=== PATIENT | male | born 1990 | race Caucasian/White ===

== ENCOUNTER 2019-12-21 03:51 | Observation (INO) | payer SELFPAY ==
[~2019-12-21] VITALS: Ht 182 cm; Wt 77.5 kg
[~2019-12-21 03:51] MED LIST: AGM875T PO; ALBU5SOL10 IH; ALBU8.5H4 IH; BENZ100C8 PO; CIPR500T78 PO; CPR500T PO; DOXY100C2 PO; FAMO-119 PO; HYDR1TAB8 OP; HYDR473S16 PO; LTRS15C TOP; PRD20T PO; SULF-109 PO; SULF1TAB38 PO; [UNRECOGNIZED DRUG - OTHER]; blue goo TOP
--- NOTE | 2019-12-21 03:51 | NUR ---
Combative on arrival. PPD at bedside.
[2019-12-21] MEDS ORDERED: LACTATED RINGERS 1,000 ML IV ONE (04:05)
[2019-12-21 04:15] LABS: BASOPHILS # (AUTO) 0.1 10^3/uL (0.0-0.1); BASOPHILS % (AUTO) 1 % (0-10); EOSINOPHILS # (AUTO) 0.5 10^3/uL (0.0-0.3); EOSINOPHILS % (AUTO) 5 % (0-10); HEMATOCRIT 46 % (40-54); LYMPHOCYTES # (AUTO) 6.3 X 10^3 (1.0-4.0); LYMPHOCYTES % (AUTO) 59 % (12-44); MEAN CORPUSCULAR HEMOGLOBIN 30 PG (25-34); MEAN CORPUSCULAR HGB CONC 35 G/DL (32-36); MEAN CORPUSCULAR VOLUME 85 FL (80-99); MEAN PLATELET VOLUME 11.7 FL (7.4-10.4); MONOCYTES # (AUTO) 1.1 X 10^3 (0.0-1.0); MONOCYTES % (AUTO) 10 % (0-12); NEUTROPHILS # (AUTO) 2.8 X 10^3 (1.8-7.8); NEUTROPHILS % (AUTO) 26 % (42-75); PLATELET COUNT 259 10^3/uL (130-400); RED CELL DISTRIBUTION WIDTH 13.1 % (10.0-14.5); WHITE BLOOD COUNT 10.7 10^3/uL (4.3-11.0)
--- NOTE | 2019-12-21 04:20 | NUR ---
HS and PPD took patient to Radiology.
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
[2019-12-21 04:30] LABS: PROTHROMBIN TIME PATIENT 13.2 SEC (12.2-14.7)
[2019-12-21 04:37] LABS: ALANINE AMINOTRANSFERASE 21 U/L (0-55); ALBUMIN 4.6 GM/DL (3.2-4.5); ALKALINE PHOSPHATASE 73 U/L (40-136); AMYLASE 44 U/L (25-125); BILIRUBIN,TOTAL 0.4 MG/DL (0.1-1.0); BUN/CREATININE RATIO 9; CALCIUM 9.1 MG/DL (8.5-10.1); CARBON DIOXIDE 21 MMOL/L (21-32); CHLORIDE 109 MMOL/L (98-107); CREATINE KINASE 161 U/L (30-200); CREATININE SERUM 1.06 MG/DL (0.60-1.30); GFR ESTIMATED > 60; GLUCOSE 105 MG/DL (70-105); LIPASE 25 U/L (8-78); MAGNESIUM 2.3 MG/DL (1.6-2.4); SODIUM 143 MMOL/L (135-145); TOTAL PROTEIN 7.7 GM/DL (6.4-8.2)
[2019-12-21 04:43] LABS: CREATINE KINASE MB 2.5 NG/ML (<6.6)
[2019-12-21 04:45] LABS: ACETAMINOPHEN < 10 UG/ML (10-30)
[2019-12-21] MEDS ORDERED: LORazepam INJ 2 MG/ML (ATIVAN) VIAL IVP ONE (05:45)
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
[2019-12-21 05:56] LABS: BILIRUBIN,URINE NEGATIVE (NEGATIVE); CLARITY,URINE CLEAR; COLOR,URINE YELLOW; GLUCOSE, URINE (UA) NEGATIVE (NEGATIVE); KETONES,URINE NEGATIVE (NEGATIVE); LEUKOCYTE ESTERASE ,URINE NEGATIVE (NEGATIVE); NITRITE,URINE NEGATIVE (NEGATIVE); PH,URINE 5.5 (5-9); PROTEIN,URINE NEGATIVE (NEGATIVE)
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
--- OUTSIDE RECORDS SUMMARY | 2019-12-21 05:56 | XMS REPORT ---
Author Author Dm Jarrell Doctor Organization [facility] Address Unknown Phone Unavailable Care Team Providers Care Certified Dietary Manager Name Role Phone Migration, Doctor Unavailable Unavailable PROBLEMS Type Condition ICD9-CM Code [id number] Code Onset Dates Condition S tatus SNOMED Code Problem Allergic rhinitis J30.9 Active 61 442159 Problem Tobacco abuse counseling Z71.6 Activ e [id number] Problem Edema of left foot R60.0 Active 1 [id number] Problem Cold sore B00.1 Active 6335157 ALLERGIES Substance Reaction Event Type Date Status Keflex Unknown Drug Allergy Aug, Active ENCOUNTERS Encounter Location Date Diagnosis [facility] [id number] [place] [phone] Feb, Strep throat J02.0 and Nause a and vomiting, intractability of vomiting not specified, unspecified vomiting type R11.2 [facility] [id number] [place] [phone] May, Edema of left foot R60.0 [facility] IN [facility] [id number] [place] [phone] May, Allergic rhinitis J30.9 ; Co ld sore B00.1 ; Edema of left foot R60.0 and Tobacco abuse counseling Z71.6 [facility] [address] [place] [phone] Aug, [facility] [id number] [place] [phone] Aug, [facility] [id number] [place] [phone] Jun, [facility] [id number] [place] [phone] Jun, IMMUNIZATIONS No Known Immunizations SOCIAL HISTORY Never Assessed REASON FOR VISIT EMR-[facility] [place] PLAN OF CARE VITAL SIGNS MEDICATIONS Medication Instructions Dosage Frequency Start Date End Date Duration S tatus Flonase 50 mcg/actuation 1 sprays by Domenic al route 2 times per day in each nostril Jun, Active Clotrimazole 1 % 1 rosemary by Topical route 2 times per day Jun, Active ProAir HFA 90 mcg/actuation inhale 2 puf fs by Inhalation route every 4 hours as needed PRN shortness of breath/cough Jun, Active MethylPREDNISolone 4 mg 4 mg by Oral route 1 time per day as directed Jun, Active Triamcinolone Acetonide 0.5 % 1 Ointment by Topical route 2 times per day PRN apply thin layer to affected area BID Jun, Active RESULTS No Results PROCEDURES No Known procedures INSTRUCTIONS MEDICATIONS ADMINISTERED No Known Medications MEDICAL (GENERAL) HISTORY Type Description Date Medical History asthma Surgical History jaw wiring 2011 Hospitalization History pneumonia 2011
--- OUTSIDE RECORDS SUMMARY | 2019-12-21 05:56 | XMS REPORT ---
Author Author Dm DICKENS Organization [employer] Address Unknown Phone Unavailable Care Team Providers Care Hardwood Floor Layer Name Role Phone SAMANTHA DICKENS CP Unavailable Allergies No Known Allergies Problems Problem Type Condition Code Onset Dates Condition Statu s Problem Cold sore B00.1 Active Problem Edema of left foot R60.0 Active Problem Allergic rhinitis J30.9 Active Problem Tobacco abuse counseling Z71.6 Act roslyn Assessment Edema of left foot R60.0 Active Medications No Known Medications Procedures Procedure Coding System Code Date X-RAY EXAM OF FOOT CPT-4 41802 May 21, 2015 Results No Known Results Summary Purpose [employer] Submission
--- OUTSIDE RECORDS SUMMARY | 2019-12-21 05:56 | XMS REPORT ---
Author Author Dm Jarrell Doctor Organization [facility] Address Unknown Phone Unavailable Care Team Providers Care Tug Boat Engineer Name Role Phone Migration, Doctor Unavailable Unavailable PROBLEMS Type Condition ICD9-CM Code KLE36-UT Code Onset Dates Condition S tatus SNOMED Code Problem Allergic rhinitis J30.9 Active 61 524644 Problem Tobacco abuse counseling Z71.6 Activ e [id number] Problem Edema of left foot R60.0 Active 1 [id number] Problem Cold sore B00.1 Active 6595516 ALLERGIES No Information ENCOUNTERS Encounter Location Date Diagnosis [facility] [id number] [place] [id number] 24 Feb, 2016 Strep throat J02.0 and Nause a and vomiting, intractability of vomiting not specified, unspecified vomiting type R11.2 [facility] [id number] [place] [phone] 12 May, 2015 Edema of left foot R60.0 [facility] [id number] [place] [phone] May, Allergic rhinitis J30.9 ; Co ld sore B00.1 ; Edema of left foot R60.0 and Tobacco abuse counseling Z71.6 [facility] [id number] [place] [id number] Aug, [facility] [id number] [place] [id number] Aug, [place] [address] [phone] Jun, [place] [id number] [place] [phone] Jun, IMMUNIZATIONS No Known Immunizations SOCIAL HISTORY Never Assessed REASON [place] [place] VITAL SIGNS MEDICATIONS No Known Medications RESULTS No Results PROCEDURES No Known procedures INSTRUCTIONS MEDICATIONS ADMINISTERED No Known Medications MEDICAL (GENERAL) HISTORY Type Description Date Medical History asthma Surgical History jaw wiring 2011 Hospitalization History pneumonia 2011
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
[2019-12-21 06:04] LABS: BACTERIA,URINE NEGATIVE /HPF; SQUAMOUS EPITHELIAL CELL,UR RARE /HPF
[2019-12-21 06:12] LABS: AMPHETAMINE SCREEN, URINE NEGATIVE (NEGATIVE); BARBITURATE SCREEN URINE NEGATIVE (NEGATIVE); BENZODIAZEPINES SCREEN URINE NEGATIVE (NEGATIVE); CANNABINOID SCREEN, URINE NEGATIVE (NEGATIVE); COCAINE SCREEN URINE NEGATIVE (NEGATIVE); METHADONE STAT NEGATIVE (NEGATIVE); METHAMPHETAMINE SCREEN URINE S NEGATIVE (NEGATIVE); OPIATE SCREEN URINE NEGATIVE (NEGATIVE); OXYCODONE STAT NEGATIVE (NEGATIVE); PROPOXYPHENE STAT NEGATIVE (NEGATIVE); TRICYCLIC ANTIDEPRESSANTS SCRE NEGATIVE (NEGATIVE)
[2019-12-21] MEDS ORDERED: NICOTINE 21 MG (NICODERM) PATCH TD ONE (06:15)
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
--- NOTE | 2019-12-21 07:06 | NUR ---
Report given to JOSE Mao.
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
[2019-12-21 08:42] VITALS: BP 109/56
[2019-12-21 09:00] VITALS: BP 97/53
[2019-12-21] MEDS ORDERED: THIAMINE INJECTION 100 MG, FOLIC ACID INJECTION 1 MG, VITAMIN MULTI INJECTION 10 ML, MA... IV SCH ×5 (09:00)
[2019-12-21] MEDS ORDERED: 1/2 NS IV SOLUTION 1,000 ML IV PRN (09:04)
[2019-12-21] MEDS ORDERED: LORazepam INJ 2 MG/ML (ATIVAN) VIAL IV PRN ×2 (09:15)
[2019-12-21] MEDS ORDERED: LORazepam INJ 2 MG/ML (ATIVAN) VIAL IM/IV PRN (09:15)
[2019-12-21] MEDS ORDERED: D5 1/2 NS 1000 ML IV SOLUTION 1,000 ML IV PRN (09:15)
[2019-12-21] MEDS ORDERED: ONDANSETRON 4 MG (ZOFRAN) ORAL DISSOLVE TAB SL PRN (09:15)
[2019-12-21] MEDS ORDERED: KETOROLAC 30 MG/ML VIAL IV PRN (09:15)
[2019-12-21] MEDS ORDERED: D5 1/2 NS W/KCL 20 MEQ/L 1,000 ML IV SCH (09:15)
[2019-12-21] MEDS ORDERED: ANTACID SUSP 30 ML UDC (MYLANTA) PO PRN (09:15)
[2019-12-21] MEDS ORDERED: LORazepam 1 MG (ATIVAN) TAB PO PRN (09:15)
[2019-12-21] MEDS ORDERED: ONDANSETRON 4 MG/2 ML (SDV) Z0FRAN IV PRN ×2 (09:15)
[2019-12-21] MEDS ORDERED: SENNA W/DOCUSATE (SENOKOT S) TABLET PO PRN (09:15)
[2019-12-21] MEDS ORDERED: THIAMINE 100 MG/ML 2 ML (VITAMIN B-1) VIAL ONE (09:19)
[2019-12-21 10:24] LABS: ALANINE AMINOTRANSFERASE 18 U/L (0-55); ALBUMIN 3.8 GM/DL (3.2-4.5); ALKALINE PHOSPHATASE 57 U/L (40-136); BILIRUBIN,TOTAL 0.3 MG/DL (0.1-1.0); BUN/CREATININE RATIO 10; CALCIUM 8.3 MG/DL (8.5-10.1); CARBON DIOXIDE 23 MMOL/L (21-32); CHLORIDE 111 MMOL/L (98-107); GFR ESTIMATED > 60; GLUCOSE 103 MG/DL (70-105); POTASSIUM 3.8 MMOL/L (3.6-5.0); SODIUM 143 MMOL/L (135-145); TOTAL PROTEIN 6.4 GM/DL (6.4-8.2)
[2019-12-21 15:00] VITALS: BP 132/85
--- NOTE | 2019-12-21 15:14 | NUR ---
SPOKE WITH THE PT TO COMPLETE THE MED REC PT DENIES TAKING ANY PRESCRIPTION OR OTC MEDICATION
--- NOTE | 2019-12-21 16:15 | NUR ---
Dr. Moore at bedside to see and assess pt. Verbal orders received to discharge pt at this time. Personal belongings given to pt at this time.
--- NOTE | 2019-12-21 16:27 | NUR ---
LYNNETTE VILLANUEVA demonstrates understanding of discharge instructions and accurately returns instructions upon questioning. Copy of Post-Discharge Instructions and Medication Discharge Instructions given to patient. LYNNETTE VILLANUEVA is able to manage continuing needs after discharge. Patients belongings returned to patient. Skin dry and intact; no breakdown noted. Patient discharged from [facility]- on 12/21/19 at 1629 . Pt is currently awaiting transport home at this time.
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
--- NOTE | 2019-12-22 09:00 | NUR ---
Pt refusing to comply with neurological checks at this time. Addendum: 12/22/19 at 1242 by AIDE JIMENES RN date 12/21/19 0900
== END 2019-12-21 17:18 | disposition home or self-care (01) ==
LOC: ER 03:51 → EDUNIT# 04:02 → ER 04:04 → 4TH 05:30 → ICU 07:00
PROVIDERS: ADMIT Surgery; ATTEND Surgery
DX: R41.82 Altered mental status, unspecified (principal); M35.8 Other specified systemic involvement of connective tissue; T14.8XXA Other injury of unspecified body region, initial encounter; J45.909 Unspecified asthma, uncomplicated; F17.210 Nicotine dependence, cigarettes, uncomplicated; F10.129 Alcohol abuse with intoxication, unspecified; Z88.0 Allergy status to penicillin; Z88.1 Allergy status to other antibiotic agents
CPT/HCPCS: 70450; 71045; 71260; 72125; 72128; 72131; 73030; 73090; 73130; 73502; 73552; 74177; 80053; 80306; 81000; 82150; 82550; 82553; 83690; 83735; 83874; 85025; 85610; 85730; 93005; 93041; 99291; 99292; G0378; G0390; G0480 ×2; 36415; 80320; 80329

== ENCOUNTER 2023-03-09 16:11 | Inpatient (IN) | payer OTHER ==
[~2023-03-09] VITALS: Ht 180 cm; Wt 85.4 kg
[2023-03-09] MEDS ORDERED: methylPREDNISolone INJ 125 MG VIAL IV STA (16:20)
[2023-03-09] MEDS ORDERED: NS IV 1000 ML 1,000 ML IV SCH (16:30)
[2023-03-09] MEDS ORDERED: RT-Ipratropium/Albuterol NEB 3 ML VIAL INH ONE (16:30)
[2023-03-09] MEDS ORDERED: MAGNESIUM 1 GM/100 ML IVPB 100 ML IV ONE ×2 (16:30→16:45)
[2023-03-09 16:39] LABS: ALBUMIN 4.3 GM/DL (3.2-4.5); POTASSIUM 3.3 MMOL/L (3.6-5.0)
[2023-03-09 16:40] LABS: CALCIUM 9.4 MG/DL (8.5-10.1)
[2023-03-09 16:41] LABS: TOTAL PROTEIN 7.3 GM/DL (6.4-8.2)
[2023-03-09 16:43] LABS: BILIRUBIN,TOTAL 0.8 MG/DL (0.1-1.0)
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
[2023-03-09 16:45] LABS: CREATININE SERUM 0.98 MG/DL (0.60-1.30)
[2023-03-09 16:58] LABS: BASOPHILS % (AUTO) 0 % (0-10); EOSINOPHILS # (AUTO) 0.1 10^3/uL (0.0-0.3); EOSINOPHILS % (AUTO) 0 % (0-10); HEMATOCRIT 45 % (40-54); HEMOGLOBIN 15.3 g/dL (13.3-17.7); LYMPHOCYTES # (AUTO) 1.6 10^3/uL (1.0-4.0); LYMPHOCYTES % (AUTO) 9 % (12-44); MEAN CORPUSCULAR HEMOGLOBIN 30 pg (25-34); MEAN CORPUSCULAR HGB CONC 34 g/dL (32-36); MEAN CORPUSCULAR VOLUME 89 fL (80-99); MEAN PLATELET VOLUME 12.5 fL (9.0-12.2); MONOCYTES % (AUTO) 12 % (0-12); NEUTROPHILS # (AUTO) 12.5 10^3/uL (1.8-7.8); NEUTROPHILS % (AUTO) 76 % (42-75); PLATELET COUNT 195 10^3/uL (130-400); WHITE BLOOD COUNT 16.5 10^3/uL (4.3-11.0)
--- NOTE | 2023-03-09 17:24 | Diagnostic Imaging Report ---
INDICATION: Chest pain. TIME OF EXAM: 05:09 p.m. COMPARISON: Correlation is made with prior chest from 12/21/2019. FINDINGS: The heart size is normal. The pulmonary vascularity is unremarkable. The lungs are clear. No infiltrate, effusion or pneumothorax is detected. IMPRESSION: No acute cardiopulmonary process is detected. Dictated by: Dictated on workstation # [id number]
[2023-03-09 17:36] LABS: BAND NEUTROPHILS 5 %; LYMPHOCYTES % (MANUAL) 9 %; MONOCYTES % (MANUAL) 9 %; NEUTROPHILS % (MANUAL) 77 %; RBC MORPH NORMAL
[2023-03-09] MEDS ORDERED: POTASSIUM CHLORIDE 20 MEQ TABLET PO ONE (17:45)
[2023-03-09] MEDS ORDERED: HOLD METFORMIN - RECEIVED CONTRAST 20 ML VIAL IV SCH (18:15)
[2023-03-09] MEDS ORDERED: IOHEXOL 350 MG/ML 100 ML (OMNIPAQUE 350) VIAL IV ONE (18:15)
[2023-03-09] MEDS ORDERED: NS 100 ML (IVPB) BAG IV ONE (18:15)
--- NOTE | 2023-03-09 18:47 | Diagnostic Imaging Report ---
INDICATION: Shortness of air, tachycardia. TECHNIQUE: After intravenous administration of contrast, thin section axial CT angiography of the chest was performed. 3D MIP reconstructions were made. All CT scans use one or more of the following dose optimizing techniques: automated exposure control, MA and/or KvP adjustment based on a patient size and exam type, or iterative reconstruction. COMPARISON: No prior studies are available for comparison. Evaluation of the pulmonary arterial system is without evidence of thromboembolism. No filling defects are seen within central, lobar or segmental branches. Thoracic aorta is normal caliber. There is no dissection. There is no pericardial or pleural fluid identified. There does appear to be minimal hazy groundglass infiltrates in the bilateral lower lobes. Otherwise, the lungs are clear. No nodules or masses are detected. Upper abdomen is unremarkable. IMPRESSION: 1. No evidence of pulmonary embolism or acute aortic disease. 2. Minimal bibasilar groundglass infiltrates, likely on an infectious/inflammatory basis. Dictated by: Dictated on workstation # [id number]
[2023-03-09 20:00] VITALS: BP 137/87
[2023-03-09] MEDS ORDERED: NS IV 1000 ML 1,000 ML ONE (20:08)
[2023-03-09 21:23] VITALS: BP 139/81
[2023-03-09] MEDS: NS IV 1000 ML 1,000 ML IV SCH (21:26)
[2023-03-09] MEDS ORDERED: ACETAMINOPHEN 500 MG TABLET PO PRN (21:30)
[2023-03-09] MEDS ORDERED: ONDANSETRON INJECTION 4 MG/2 ML (SDV) IV PRN (21:30)
[2023-03-09] MEDS ORDERED: diphenhydrAMINE 25 MG TABLET PO PRN (21:30)
[2023-03-09] MEDS ORDERED: RT-ALBUTEROL SULF 2.5 MG/3 ML PRE-MIX VIAL INH PRN (21:30)
[2023-03-09] MEDS ORDERED: diphenhydrAMINE INJ 50 MG/ML VIAL IV PRN (21:30)
[2023-03-09] MEDS ORDERED: fentaNYL INJECTION 100 MCG/2 ML VIAL IV PRN (21:30)
[2023-03-09 23:51] VITALS: BP 133/82
[2023-03-10 03:16] VITALS: BP 141/75
[2023-03-10 04:51] LABS: BASOPHILS % (AUTO) 0 % (0-10); EOSINOPHILS % (AUTO) 0 % (0-10); HEMATOCRIT 42 % (40-54); HEMOGLOBIN 14.5 g/dL (13.3-17.7); LYMPHOCYTES # (AUTO) 1.7 10^3/uL (1.0-4.0); LYMPHOCYTES % (AUTO) 9 % (12-44); MEAN CORPUSCULAR HEMOGLOBIN 30 pg (25-34); MEAN CORPUSCULAR HGB CONC 34 g/dL (32-36); MEAN CORPUSCULAR VOLUME 88 fL (80-99); MEAN PLATELET VOLUME 12.8 fL (9.0-12.2); MONOCYTES % (AUTO) 5 % (0-12); NEUTROPHILS # (AUTO) 15.4 10^3/uL (1.8-7.8); NEUTROPHILS % (AUTO) 85 % (42-75); PLATELET COUNT 170 10^3/uL (130-400); WHITE BLOOD COUNT 18.2 10^3/uL (4.3-11.0)
[2023-03-10 05:16] LABS: CALCIUM 9.2 MG/DL (8.5-10.1); CREATININE SERUM 0.85 MG/DL (0.60-1.30); POTASSIUM 4.6 MMOL/L (3.6-5.0)
[2023-03-10] MEDS: NS IV 1000 ML 1,000 ML IV SCH ×2 (06:32→16:03)
[2023-03-10] MEDS ORDERED: CATHETER FLUSH 10 ML SYR IV PRN (06:45)
[2023-03-10 07:49] VITALS: BP 142/79
[2023-03-10] MEDS ORDERED: LORA10TA7 PO (10:43)
[2023-03-10] MEDS ORDERED: FERR325T18 PO (10:43)
[2023-03-10] MEDS ORDERED: predniSONE 20 MG TABLET PO ONE (11:15)
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
[2023-03-10] MEDS: CATHETER FLUSH 10 ML SYR IV SCH ×2 (11:22→19:13)
[2023-03-10 12:16] VITALS: BP 139/78
[2023-03-10] MEDS: NICOTINE 21 MG PATCH TD SCH (13:28)
[2023-03-10 15:31] VITALS: BP 129/80
[2023-03-10] MEDS ORDERED: LEVOFLOXACIN 750 MG/D5W 150 ML PRE-MIX IV SCH (18:00)
[2023-03-10 19:35] VITALS: BP 130/80
[2023-03-10 23:41] VITALS: BP 107/61
[2023-03-11 04:12] VITALS: BP 132/78
[2023-03-11] MEDS: NS IV 1000 ML 1,000 ML IV SCH (04:12)
[2023-03-11] MEDS: CATHETER FLUSH 10 ML SYR IV SCH (04:12)
[2023-03-11 06:11] LABS: CALCIUM 9.2 MG/DL (8.5-10.1); CREATININE SERUM 0.84 MG/DL (0.60-1.30); POTASSIUM 4.3 MMOL/L (3.6-5.0)
[2023-03-11 06:13] LABS: HEMATOCRIT 44 % (40-54); MEAN CORPUSCULAR HEMOGLOBIN 31 pg (25-34); MEAN CORPUSCULAR HGB CONC 34 g/dL (32-36); MEAN CORPUSCULAR VOLUME 90 fL (80-99); PLATELET COUNT 202 10^3/uL (130-400); WHITE BLOOD COUNT 12.3 10^3/uL (4.3-11.0)
[2023-03-11] MEDS ORDERED: predniSONE 20 MG TABLET PO SCH (07:00)
[2023-03-11 07:38] VITALS: BP 143/83
[2023-03-11] MEDS: NICOTINE 21 MG PATCH TD SCH (08:21)
[2023-03-11] MEDS ORDERED: NICOTINE PATCH REMOVAL TP SCH (08:59)
--- NOTE | 2023-03-11 10:25 | Discharge Summary ---
Diagnosis/Chief Complaint Date of Admission Mar 09, 2023 at 19:45 Date of Discharge 03/11/23 Discharge Date: Mar 11, 2023 Discharge Time: 10:19 Admission Diagnosis Hypoxia, pneumonia, asthma exacerbation Primary Care Severiano Kirby DO Discharge Diagnosis Hypoxia, pneumonia, asthma exacerbation Discharge Summary Discharge Physical Exam Allergies: Coded Allergies: cephalexin (Unverified Allergy, Mild, 12/30/08) Penicillins (Unverified Allergy, Unknown, HIVES, SOB, 12/21/19) Vitals & I&Os Vital Signs Date Time Temp Pulse Resp B/P (MAP) Pulse Ox O2 Delivery O2 Flow Rate FiO2 03/11/23 08:42 Room Air 03/11/23 07:38 36.8 84 18 143/83 (103) 94 03/10/23 23:41 1.00 03/09/23 21:23 28 General Appearance: No Apparent Distress, WD/WN HEENT: PERRL/EOMI Respiratory: Chest Non Tender, Normal Breath Sounds, No Accessory Muscle Use, No Respiratory Distress Cardiovascular: Regular Rate, Rhythm, No Murmur Gastrointestinal: Non Tender, Soft Extremity: Normal Inspection, Non Tender Skin: Normal Color, Warm/Dry Neurologic/Psychiatric: Alert, Oriented x3, Normal Mood/Affect Hospital Course Was the Problem List Reviewed?: Yes Pt is a 32 y/o male who presented to the ER on 03/09 with shortness of breath, productive cough, fever, and diarrhea. WBC on admission was 16.5. On exam, crackles and wheezing b/l was auscultated. Chest/Thorax CTA revealed minimal bibasilar groundglass infiltrates. Was started on levofloxacin, albuterol, p rednisone, and O2 via nasal cannula. WBC is 12.3 today. Pt is feeling much better, breathing on room air without difficulty, and desires to go home. Will send albuterol inhaler, prednisone 40 mg and levofloaxcin to pharmacy for him to complete his therapy. Recommend follow up with primary care doctor. Labs (last 24 hrs) Laboratory Tests 03/11/23 05:29: Sodium Level 138, Potassium Level 4.3, Chloride Level 107, Carbon Dioxide Level 20L, Anion Gap 11, Blood Urea Nitrogen 14, Creatinine 0.84, Estimat Glomerular Filtration Rate 119, BUN/Creatinine Ratio 17, Glucose Level 90, Calcium Level 9.2 03/11/23 06:06: White Blood Count 12.3H, Red Blood Count 4.91, Hemoglobin 15.0, Hematocrit 44, Mean Corpuscular Volume 90, Mean Corpuscular Hemoglobin 31, Mean Corpuscular Hemoglobin Concent 34, Red Cell Distribution Width 13.1, Platelet Count 202, Mean Platelet Volume 12.0 Patient resulted labs reviewed. Pending Labs Laboratory Tests 03/11/23 05:29: Sodium Level 138, Potassium Level 4.3, Chloride Level 107, Carbon Dioxide Level 20, Anion Gap 11, Blood Urea Nitrogen 14, Creatinine 0.84, Estimat Glomerular Filtration Rate 119, BUN/Creatinine Ratio 17, Glucose Level 90, Calcium Level 9.2 03/11/23 06:06: White Blood Count 12.3, Red Blood Count 4.91, Hemoglobin 15.0, Hematocrit 44, Mean Corpuscular Volume 90, Mean Corpuscular Hemoglobin 31, Mean Corpuscular Hemoglobin Concent 34, Red Cell Distribution Width 13.1, Platelet Count 202, Mean Platelet Volume 12.0 Imaging: Reviewed Imaging Films, Reviewed Imaging Report Discharge Home Medications: Active Scripts Active Reported Ferrous Sulfate 325 Mg (65 Mg Iron) Tablet 325 Mg PO DAILY PRN Loratadine 10 Mg Tablet 10 Mg PO DAILY PRN Instructions to patient/family Please see electronic discharge instructions given to patient. YOLI JONAS Mar 11, 2023 10:24
[2023-03-11] MEDS ORDERED: RT-ALBUINH INH (11:45)
[2023-03-11] MEDS ORDERED: LEVO750T PO (11:45)
--- NOTE | 2023-03-11 11:49 | Discharge Inst-Simple/Standard ---
Discharge Inst-Standard Patient Instructions/Follow Up Plan of Care/Instructions/FU: Please continue to take your medications as written. Please follow up with your primary care doctor to follow up this hospital stay. Activity as Tolerated: Yes Discharge Diet: No Restrictions Return to The Hospital For: Chest pain, shortness of breath, fever, weakness, if you feel you are getting worse. MABEL CHAVEZ MD Mar 11, 2023 11:49
== END 2023-03-11 12:46 | disposition home or self-care (01) | DRG 194 ==
LOC: EDUNIT# 16:11 → ER 16:13 → 4TH 19:45
PROVIDERS: ADMIT Internal Medicine; ATTEND Internal Medicine
DX: J18.9 Pneumonia, unspecified organism (principal); J45.901 Unspecified asthma with (acute) exacerbation; R09.02 Hypoxemia; F17.210 Nicotine dependence, cigarettes, uncomplicated; Z88.0 Allergy status to penicillin; Z88.1 Allergy status to other antibiotic agents; Z20.822 Contact with and (suspected) exposure to COVID-19
CPT/HCPCS: 36415; 71045; 71275; 80048; 80053; 83880; 85007; 85025; 85027; 85379; 87636; 93041; 94640; 94664; 94760; 96361; 96365; 96367; 96375